=== PATIENT | male | born 1990 | race Caucasian/White ===

== ENCOUNTER 2022-04-10 20:53 | Emergency (ER) | payer OTHER ==
[~2022-04-10] VITALS: Ht 167.6 cm; Wt 86.2 kg
--- NOTE | 2022-04-10 20:58 | NUR ---
PT TAKEN TO BED 2.
[2022-04-10 21:01] VITALS: BP 195/125
--- NOTE | 2022-04-10 21:07 | NUR ---
GUDELIATaylor FROM STREET WITH C/C OF WITNESSED SEIZURE BY [employer]. PT STATES HE WAS ON THE SIDE WALK WHEN HE BEGAN SEIZING. PT DENIES HEAD INJURY. DENIES ANY FORM OF TRUAMA. MEDIC STATES WHEN THEY ARRIVED PT WAS A&4 X4, BUT A BIT GROGGY. MEDIC DENIES ORAL INJURY, NO SIGNS OF INCONTINCE. STATES PT WAS SEEN ABOUT 4DAYS AGO FOR SAME OCCURENCE. 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 HX:HTN AND SEIZURE RX:TEGRETOL AND LISINOPRIL
--- NOTE | 2022-04-10 21:30 | NUR ---
PATIENT TAKEN TO CT VIA [facility]
--- NOTE | 2022-04-10 21:37 | NUR ---
PATIENT RETURNED FROM CT VIA [facility]
[2022-04-10 22:04] LABS: BASOPHILS # (AUTO) 0.1 K/uL (0.00-0.22); EOSINOPHILS # (AUTO) 0.3 K/uL (0-0.4); EOSINOPHILS % (AUTO) 3.3 % (0.0-4.0); HEMATOCRIT 38.9 % (36-52); HEMOGLOBIN 12.8 g/dL (12.0-18.0); LYMPHOCYTES # (AUTO) 1.6 K/uL (2.0-11.5); LYMPHOCYTES % (AUTO) 20.8 % (20.5-51.1); MEAN CORPUSCULAR HEMOGLOBIN 28 pg (27-31); MEAN CORPUSCULAR HGB CONC 33 g/dL (33-37); MEAN CORPUSCULAR VOLUME 85.2 fL (80-94); MONOCYTES # (AUTO) 0.4 K/uL (0.8-1.0); MONOCYTES % (AUTO) 5.4 % (1.7-9.3); NEUTROPHILS # (AUTO) 5.5 K/uL (1.8-7.7); NEUTROPHILS % (AUTO) 69.5 % (42.2-75.2); PLATELET COUNT (AUTO) 212 K/uL (140-450); RED BLOOD CELL COUNT(AUTO) 4.56 MIL/uL (4.20-6.10); RED CELL DISTRIBUTION WIDTH 15.7 % (11.6-13.7); WHITE BLOOD COUNT (AUTO) 7.9 K/uL (4.8-10.8)
[2022-04-10 22:23] LABS: ALBUMIN 3.7 g/dL (3.4-5.0); ANION GAP 11.5 (8-16); CARBON DIOXIDE 25.9 mmol/L (21-32); CREATININE 0.8 mg/dL (0.6-1.3); POTASSIUM 3.4 mmol/L (3.5-5.1); TOTAL BILIRUBIN 0.2 mg/dL (0.0-1.0)
[2022-04-10] MEDS: carBAMazepine 200 MG TAB PO ONE (22:30)
[2022-04-10] MEDS: NACL 0.9% 2,000 ML IV ONE (22:31)
--- NOTE | 2022-04-10 22:47 | NUR ---
PT GIVEN FOOD PER REQUEST.
[2022-04-10 23:00] LABS: BARBITURATE, URINE NEGATIVE ng/ml (NEG <=200); BENZODIAZEPINE, URINE NEGATIVE ng/mL (NEG <=200); CANNABINOID, URINE NEGATIVE ng/mL (NEG <=50); COCAINE, URINE NEGATIVE ng/mL (NEG <=300); OPIATE, URINE NEGATIVE ng/mL (NEG <=2000); PHENCYCLIDINE SCREEN,URINE NEGATIVE ng/mL (NEG <=25)
[2022-04-10] MEDS ORDERED: CARB200T1 PO (23:11)
[2022-04-10 23:41] VITALS: BP 181/85
--- NOTE | 2022-04-10 23:41 | NUR ---
Patient discharged with v/s stable. Written and verbal after care instructions given and explained. Patient alert, oriented and verbalized understanding of instructions. Ambulatory with steady gait. All questions addressed prior to discharge. ID band removed. Patient advised to follow up with PMD. Rx of TEGRETOL given. Patient educated on indication of medication including possible reaction and side effects. Opportunity to ask questions provided and answered. PT GIVEN HOMELESS PACKET, CLOTHES IS APPROPRIATE, AND PT PROVIDED WITH FOOD AND WATER. WE CALLED HIS MOTHER DHRUV FOR PICK-UP, LEFT A MSG.
== END 2022-04-10 23:41 | disposition home or self-care (01) ==
LOC: MED 20:53
DX: R56.9 Unspecified convulsions (principal); F15.10 Other stimulant abuse, uncomplicated; Z79.899 Other long term (current) drug therapy; Z98.890 Other specified postprocedural states
CPT/HCPCS: 36415; 70450; 80053; 80305; 85025; 93005; 96360; 99285; J7030